=== PATIENT | female | born 1980 | race Caucasian/White ===

== ENCOUNTER 2016-07-28 20:51 | Emergency (ER) | payer OTHER ==
[~2016-07-28] VITALS: Ht 165.1 cm; Wt 77.2 kg
[2016-07-28 20:57] VITALS: Ht 165.1 cm; Wt 77.2 kg
[2016-07-28] MEDS ORDERED: DIPHTH/TET/ACEL PERTUSS (ADULT) 0.5 ML VIAL IM* ONE (22:00)
--- NOTE | 2016-07-28 22:11 | ERD ---
ER Documentation Chief Complaint Date/Time DATE: 07/28/16 TIME: 22:10 Chief Complaint REQUEST FOR TDAP VACCINE. HPI This is a 35-year-old female presenting to the emergency department requesting for a tetanus shot vaccination because her work is requesting it. Patient does not have any complaints. She denies any pain, 0 out of 10. Denies any chest pain, shortness of breath ROS All systems reviewed and are negative except as per history of present illness. Allergies Allergies: Coded Allergies: No Known Allergy (Unverified , 07/28/16) PMhx/Soc Medical and Surgical Hx: pt denies Medical Hx History of Surgery: Yes ( X 2.) Anesthesia Reaction: No Hx Neurological Disorder: No Hx Respiratory Disorders: No Hx Cardiac Disorders: No Hx Psychiatric Problems: No Hx Miscellaneous Medical Probl: No Hx Alcohol Use: No Hx Substance Use: No Hx Tobacco Use: No Smoking Status: Never smoker Physical Exam Vitals Vital Signs Date Time Temp Pulse Resp B/P Pulse Ox O2 Delivery O2 Flow Rate FiO2 07/28/16 20:57 98.3 92 18 137/85 97 Physical Exam Const: [] Head: Atraumatic Eyes: Normal Conjunctiva ENT: Normal External Ears, Nose and Mouth. Neck: Full range of motion..~ No meningismus. Resp: Clear to auscultation bilaterally Cardio: Regular rate and rhythm, no murmurs Abd: Soft, non tender, non distended. Normal bowel sounds Skin: No petechiae or rashes Back: No midline or flank tenderness Ext: No cyanosis, or edema Neur: Awake and alert Psych: Normal Mood and Affect Results 24 hrs Current Medications Medications (Trade) Dose Ordered Sig/Linda Route PRN Reason Start Time Stop Time Status Last Admin Dose Admin Diphtheria/ Tetanus/Acell Pertussis (Adacel) 0.5 ml ONCE ONCE IM* 07/28/16 22:00 07/28/16 22:01 DC 07/28/16 22:09 Procedures/MDM This is a 35-year-old female presenting to the emergency department requesting for tetanus vaccination for work. Patient has no complaints. In the ED tetanus shot was given. Discussed return the ER for any worsening sinus symptoms. Patient understands and agrees with Departure Diagnosis: Primary Impression: Encounter for laboratory test Condition: Stable Patient Instructions: Tdap Vaccine Info Sheet (VIS) Referrals: NO PRIMARY,CARE PHYSICIAN (PCP) BASHARDOUST,NUSHA N. PA-C July 28, 2016 22:11
[2016-07-28 22:13] VITALS: BP 136/78; PULSE 78; RESP 20; TEMP 98.1
== END 2016-07-28 22:18 | disposition home or self-care (01) ==
LOC: FTE 20:51
DX: Z23 Encounter for immunization (principal)
CPT/HCPCS: 90471; 90715; Z7502

== ENCOUNTER 2016-08-21 03:26 | Emergency (ER) | payer OTHER ==
[~2016-08-21] VITALS: Ht 165.1 cm; Wt 82.0 kg
[2016-08-21 03:33] VITALS: Ht 165.1 cm; Wt 82.0 kg
[2016-08-21 04:00] LABS: URINE BLOOD (Dip) POC Trace-intact (NEGATIVE)
--- NOTE | 2016-08-21 04:02 | ERA ---
ER Documentation Chief Complaint Date/Time DATE: 08/21/16 TIME: 04:01 Chief Complaint C/O GENERALIZED ABD PAIN WITH N/V X 3 AND DIARRHEA X 10 HPI The patient is a 35-year-old female, presenting to the ER because of diffuse abdominal pain for 1 day, associated with vomiting and diarrhea. She denies hematemesis, hematochezia, denies fever, chills, neck pain, chest pain, dyspnea , dysuria. She does not smoke nor drink Past medical history: None Past surgical history: 2 ROS All systems reviewed and are negative except as per history of present illness. Medications Home Meds No Active Prescriptions or Reported Meds Allergies Allergies: Coded Allergies: No Known Allergy (Unverified , 08/21/16) PMhx/Soc History of Surgery: Yes ( X 2.) Anesthesia Reaction: No Hx Neurological Disorder: No Hx Respiratory Disorders: No Hx Cardiac Disorders: No Hx Psychiatric Problems: No Hx Miscellaneous Medical Probl: No Hx Alcohol Use: No Hx Substance Use: No Hx Tobacco Use: No Physical Exam Vitals Vital Signs Date Time Temp Pulse Resp B/P Pulse Ox O2 Delivery O2 Flow Rate FiO2 08/21/16 03:33 98.1 86 24 158/79 98 Physical Exam Const: No acute distress. Head: Atraumatic. Eyes: Normal Conjunctiva. ENT: Normal External Ears, Nose and Mouth. Neck: Full range of motion. No meningismus. Resp: Clear to auscultation bilaterally. Cardio: Regular rate and rhythm. Abd: Soft, non distended, normal bowel sounds, diffuse abdominal tenderness, no rigidity, rebound, CVA tenderness Skin: No petechiae or rashes. Back: No midline or flank tenderness. Ext: No cyanosis, or edema. Neur: Awake and alert. No focal deficit Psych: Normal Mood and Affect. Result Diagram: 08/21/16 0420 08/21/16 042 Results 24 hrs Laboratory Tests Test 08/21/16 04:03 08/21/16 04:20 Bedside Urine pH (LAB) 7.0 Bedside Urine Protein (LAB) Negative Bedside Urine Glucose (UA) Negative Bedside Urine Ketones (LAB) Negative Bedside Urine Blood Trace-intact Bedside Urine Nitrite (LAB) Negative Bedside Urine Leukocyte Esterase (L Negative White Blood Count 11.910^3/ul Red Blood Count 4.5710^6/ul Hemoglobin 13.0g/dl Hematocrit 38.8% Mean Corpuscular Volume 84.9fl Mean Corpuscular Hemoglobin 28.4pg Mean Corpuscular Hemoglobin Concent 33.5g/dl Red Cell Distribution Width 11.6% Platelet Count 31899^3/UL Mean Platelet Volume 11.5fl Neutrophils % 72.1% Lymphocytes % 20.7% Monocytes % 4.5% Eosinophils % 1.4% Basophils % 0.7% Nucleated Red Blood Cells % 0.0/100WBC Neutrophils # 8.610^3/ul Lymphocytes # 2.510^3/ul Monocytes # 0.510^3/ul Eosinophils # 0.210^3/ul Basophils # 0.110^3/ul Nucleated Red Blood Cells # 0.010^3/ul Sodium Level 137mmol/L Potassium Level 4.1mmol/L Chloride Level 101mmol/L Carbon Dioxide Level 25mmol/L Anion Gap 15 Blood Urea Nitrogen 13mg/dl Creatinine 0.70mg/dl Glucose Level 177mg/dl Calcium Level 10.0mg/dl Total Bilirubin 0.6mg/dl Direct Bilirubin 0.00mg/dl Indirect Bilirubin 0.6mg/dl Aspartate Amino Transf (AST/SGOT) 25IU/L Alanine Aminotransferase (ALT/SGPT) 41IU/L Alkaline Phosphatase 95IU/L Total Protein 8.3g/dl Albumin 5.2g/dl Globulin 3.10g/dl Albumin/Globulin Ratio 1.67 Lipase 76U/L Current Medications Medications (Trade) Dose Ordered Sig/Linda Route PRN Reason Start Time Stop Time Status Last Admin Dose Admin Sodium Chloride (NS) 1,000 ml @ 1,000 mls/hr Q1H STAT IV 08/21/16 04:11 08/21/16 05:10 DC 08/21/16 04:22 Morphine Sulfate (morphine) 4 mg ONCE STAT IV 08/21/16 04:11 08/21/16 04:13 DC 08/21/16 04:22 Ondansetron HCl (Zofran Inj) 4 mg ONCE STAT IV 08/21/16 04:11 08/21/16 04:14 DC 08/21/16 04:21 Procedures/[place] [id number] Radiology Main Line: [phone] DIAGNOSTIC IMAGING REPORT Patient: FERNANDO HUBBARD : 1980 Age: 35 Sex: F [id number] DOS: 08/21/16 0411 Ordering MD: KODY TAYLOR MD Location: E/R Room/Bed: PROCEDURE: CT ABDOMEN/PELVIS WITHOUT CONTRAST CLINICAL INDICATION: 35-year-old female with abdominal pain. TECHNIQUE: The study was performed utilizing a GE [employer] VCT 64-slice CT scanner. Direct axial sections were obtained through the abdomen and pelvis without the use of intravenous contrast material. Sagittal and coronal reformations were obtained. One or more of the following dose reduction techniques were utilized: automated exposure control, adjustment of the mA and/ or kV according to patient's size or use of iterative reconstruction technique. The images were reviewed on a PACS workstation. CTD/vol = 15.8 mGy; Total Exam DLP = 965.3 mGy-cm. COMPARISON: None. FINDINGS: The lung bases are unremarkable. There is no evidence for significant pleural effusion. The liver has a normal size and contour without focal areas of abnormal density. No intrahepatic nor extrahepatic biliary ductal dilatation is seen. The gallbladder demonstrates no wall thickening nor pericholecystic fluid. No biliary stones are evident. The pancreas is without areas of abnormal attenuation. The spleen is identified and has a normal size without abnormal density. The adrenal glands are unremarkable. The kidneys are without abnormal density. No hydroureteronephrosis nor nephroureterolithiasis is evident. The urinary bladder contains urine. There is a small umbilical hernia present with an opening measuring 10 x 12 mm containing fat. There is no evidence for bowel obstruction. The appendix is visualized and is without abnormal thickening or surrounding inflammatory reaction. The uterus is unremarkable. There is no significant free fluid. Phleboliths are present within the pelvis. The aortoiliac vessels are without aneurysmal dilatation. The osseous structures are intact. IMPRESSION: 1. Small umbilical hernia containing fat. 2. No CT evidence for appendicitis. .Saul Juarez MD, Date Time Electronically viewed and signed by .Saul Juarez MD, MD on 08/21/2016 05:27 .M/ CC: KDOY TAYLOR MD MEDICAL MAKING DECISION: The patient is a 35-year-old female, presenting with acute abdominal pain of unclear etiology. She went treated with 1 L normal saline for clinical dehydration, morphine 4 mg IV for pain, Zofran 4 mg IV for now sent with good response. On multiple repeat abdominal examination was unremarkable The differential diagnoses considered include but are not limited to cholelithiasis, cholecystitis, cystitis, pancreatitis, hepatitis, gastritis, peptic ulcer disease, gastric ulcer, appendicitis, diverticulitis, cholangitis, choledocholithiasis, partial small bowel obstruction. Departure Diagnosis: Primary Impression: Abdominal pain Condition: Good Comments She was discharged with Motrin I discussed the findings with the patient. I advised the patient to follow-up with the primary physician in about 1-2 days, sooner if needed and return if any concern. The patient's blood pressure was elevated (>120/80) but appears stable without evidence of hypertension emergency or urgency. The patient was counseled about the risks of hypertension and urged to pursue outpatient monitoring and therapy within a week with their primary care physician. KODY TAYLOR MD Aug 21, 2016 04:01
[2016-08-21] MEDS ORDERED: morphine 4 MG/ML VIAL IV STA (04:11)
[2016-08-21] MEDS ORDERED: ONDANSETRON 4 MG INJ IV STA (04:11)
[2016-08-21] MEDS ORDERED: SOD CHLORIDE 0.9% 1,000 ML IV STA (04:11)
[2016-08-21 04:33] LABS: ADD SCAN DIFF NO
[2016-08-21 04:36] LABS: BASOPHIL # 0.1 10^3/ul (0.0-0.1); BASOPHILS % 0.7 % (0.0-2.0); EOSINOPHILS # 0.2 10^3/ul (0.0-0.5); EOSINOPHILS % 1.4 % (0.0-7.0); HEMATOCRIT 38.8 % (37.0-47.0); LYMPHOCYTES # 2.5 10^3/ul (0.8-2.9); LYMPHOCYTES % 20.7 % (15.0-51.0); MEAN CORPUSCULAR HEMOGLOBIN 28.4 pg (29.0-33.0); MEAN CORPUSCULAR HGB CONC 33.5 g/dl (32.0-37.0); MEAN CORPUSCULAR VOLUME 84.9 fl (82.0-101.0); MEAN PLATELET VOLUME 11.5 fl (7.4-10.4); MONOCYTE # 0.5 10^3/ul (0.3-0.9); MONOCYTES % 4.5 % (0.0-11.0); NEUTROPHIL # 8.6 10^3/ul (1.6-7.5); NEUTROPHILS % 72.1 % (39.0-77.0); PLATELET COUNT 321 10^3/UL (140-415); RED BLOOD COUNT 4.57 10^6/ul (4.20-5.40); RED CELL DISTRIBUTION WIDTH 11.6 % (11.5-14.5); WHITE BLOOD COUNT 11.9 10^3/ul (4.8-10.8)
[2016-08-21 04:54] LABS: ALBUMIN 5.2 g/dl (3.3-4.9); ALBUMIN/GLOBULIN RATIO 1.67; BILIRUBIN,INDIRECT 0.6 mg/dl (0-1.1); BILIRUBIN,TOTAL 0.6 mg/dl (0.2-1.3); CREATININE 0.7 mg/dl (0.44-1.00); POTASSIUM 4.1 mmol/L (3.5-5.1); TOTAL PROTEIN 8.3 g/dl (6.1-8.1)
--- NOTE | 2016-08-21 05:27 | RADRPT ---
PROCEDURE: CT ABDOMEN/PELVIS WITHOUT CONTRAST CLINICAL INDICATION: 35-year-old female with abdominal pain. TECHNIQUE: The study was performed utilizing a GE [employer] VCT 64-slice CT scanner. Direct axia l sections were obtained through the abdomen and pelvis without the use of intravenous contrast mate rial. Sagittal and coronal reformations were obtained. One or more of the following dose reduction t echniques were utilized: automated exposure control, adjustment of the mA and/or kV according to pat ient's size or use of iterative reconstruction technique. The images were reviewed on a PACS workst [employer]. CTD/vol = 15.8 mGy; Total Exam DLP = 965.3 mGy-cm. COMPARISON: None. FINDINGS: The lung bases are unremarkable. There is no evidence for significant pleural effusion. The liver has a normal size and contour without focal areas of abnormal density. No intrahepatic nor extrahepa tic biliary ductal dilatation is seen. The gallbladder demonstrates no wall thickening nor perichole cystic fluid. No biliary stones are evident. The pancreas is without areas of abnormal attenuation. The spleen is identified and has a normal size without abnormal density. The adrenal glands are unr emarkable. The kidneys are without abnormal density. No hydroureteronephrosis nor nephroureterolithi asis is evident. The urinary bladder contains urine. There is a small umbilical hernia present with an opening measuring 10 x 12 mm containing fat. There is no evidence for bowel obstruction. The ap pendix is visualized and is without abnormal thickening or surrounding inflammatory reaction. The ut erus is unremarkable. There is no significant free fluid. Phleboliths are present within the pelvis. The aortoiliac vessels are without aneurysmal dilatation. The osseous structures are intact . IMPRESSION: 1. Small umbilical hernia containing fat. 2. No CT evidence for appendicitis. .Saul Juarez MD, MD Date Time Electronically viewed and signed by .Saul Juarez MD, on 08/21/2016 05:27 .[place]/
[2016-08-21] MEDS ORDERED: IBUP-1542 PO (05:34)
[2016-08-21 05:45] VITALS: BP 136/68; PULSE 71; RESP 18; TEMP 98.3
== END 2016-08-21 05:47 | disposition home or self-care (01) ==
LOC: E/R 03:26
DX: R10.84 Generalized abdominal pain (principal)
CPT/HCPCS: 36415; 74176; 80053; 81003; 83690; 85025; 96374; 96375; J2270; J2405; J7030; Z7502

== ENCOUNTER 2017-03-16 22:22 | Emergency (ER) | END 2017-03-17 01:58 | disposition left against medical advice (07) ==